=== PATIENT | female | born 1975 | race Caucasian/White ===

== ENCOUNTER 2021-02-25 09:50 | Emergency (ER) | payer MEDICARE ==
--- NOTE | 2021-02-25 11:25 | EDM.PDOC ---
ED HPI GENERAL MEDICAL PROBLEM - General Chief Complaint: Lower Extremity Injury/Pain Stated Complaint: FELL OUTSIDE Time Seen by Provider: 02/25/21 11:21 Source of Information: Reports: Patient, RN, RN Notes Reviewed History Limitations: Reports: No Limitations - History of Present Illness INITIAL COMMENTS - FREE TEXT/NARRATIVE: Rosa M is a 45 y/o female with history of chronic steroid use and osteogenesis imperfecta, who presents to the ED via personal vehicle with pain following a fall from ground level yesterday. The patient denies loss of consciousness and did not strike her head. She reports increasing pain in her anterolateral left ribs, lateral left knee, and lateral left ankle. The patient denies history of injuries to these areas of her body. She denies loss of sensory function to the extremities, but does note she is unable to ambulate due to pain. 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 She denies tobacco, alcohol, or recreational drug use. Left Ankle Pain Score (Numeric/FACES): 10 - Related Data Allergies Allergy/AdvReac Type Severity Reaction Status Date / Time lisinopril Allergy Other Verified 02/25/21 11:02 lorazepam Allergy Other Verified 02/25/21 11:02 morphine Allergy Hives Verified 02/25/21 11:02 Home Meds: Home Meds DULoxetine [Cymbalta] 60 mg PO DAILY 02/25/21 [History] HYDROcodone/Ibuprofen [Hydrocodone-Ibuprofen 7.5-200] 1 tab PO Q8HR 02/25/21 [History] Metoprolol Tartrate 25 mg PO QPM 02/25/21 [History] Metoprolol Tartrate 100 mg PO QAM 02/25/21 [History] predniSONE [Prednisone] 10 mg PO DAILY 02/25/21 [History] Past Medical History Cardiovascular History: Reports: Hypertension [employer] SPECIALIST History: Reports: Musculoskeletal History: Reports: Fracture Psychiatric History: Reports: Depression Immunologic History: Reports: Other (See Below) Other Immunologic History: autoimmune disorder-polymiocytis - Past Surgical History Musculoskeletal Surgical History: Reports: Other (See Below) Other Musculoskeletal Surgeries/Procedures:: left elbow surgery Social & Family History - Tobacco Use Tobacco Use Status *Q: Light Tobacco User Years of Tobacco use: 2 Packs/Tins Daily: 0.2 - Caffeine Use Caffeine Use: Reports: Coffee - Recreational Drug Use Recreational Drug Use: Yes Drug Use in Last 12 Months: No Recreational Drug Type: Reports: Marijuana/Hashish Review of Systems - Review of Systems Review Of Systems: Comprehensive ROS is negative, except as noted in HPI. ED EXAM, GENERAL - Physical Exam Exam: See Below Exam Limited By: No Limitations General Appearance: Alert, Mild Distress (Tearful d/t pain), Obese Eye Exam: Bilateral Eye: EOMI, Normal Inspection, PERRL (3mm) Ears: Normal External Exam, Normal Canal, Hearing Grossly Normal, Normal TMs Ear Exam: Bilateral Ear: Auricle Normal, Canal Normal, TM normal Nose: Normal Inspection, Normal Mucosa, No Blood Throat/Mouth: Normal Inspection, Normal Oropharynx, Normal Voice, No Airway Compromise Head: Atraumatic, Normocephalic Neck: Normal Inspection, Supple, Non-Tender, Full Range of Motion Respiratory/Chest: No Respiratory Distress, Lungs Clear, Normal Breath Sounds, No Accessory Muscle Use, Splinting. No: Chest Non-Tender (With deep breaths), Crackles, Rales, Rhonchi, Wheezing, Retractions, Prolonged Expiration Cardiovascular: Normal Peripheral Pulses, Regular Rate, Rhythm, No Edema, No Gallop, No JVD, No Murmur, No Rub Peripheral Pulses: 2+: Radial (L), Radial (R), Dorsalis Pedis (L), Dorsalis Pedis (R) GI/Abdominal: Normal Bowel Sounds, Soft, Non-Tender, No Distention, No Abnormal Bruit, No Mass, Pelvis Stable (Female) Exam: Deferred Rectal (Female) Exam: Deferred Back Exam: Normal Inspection, Full Range of Motion Extremities: No Pedal Edema, Normal Capillary Refill, Leg Pain (Left knee and left lateral ankle), Limited Range of Motion (To left knee and left ankle). No: Joint Swelling, Increased Warmth, Pallor, Redness Neurological: Alert, Oriented, CN II-XII Intact, Normal Cognition, No Motor/Sensory Deficits, Abnormal Gait (Unable to bear weight to left extremity without pain) Psychiatric: Normal Affect, Anxious, Tearful Skin Exam: Warm, Dry, Intact, Normal Color, No Rash. No: Ecchymosis, Mottled, Pallor, Petechiae Lymphatic: No Adenopathy Course - Vital Signs Last Recorded V/S: Last Vital Signs Temp 99.3 F 02/25/21 11:07 Pulse 87 02/25/21 11:07 Resp 20 02/25/21 11:07 BP 150/109 H 02/25/21 11:07 Pulse Ox 98 02/25/21 11:07 - Orders/Labs/Meds Meds: Medications Discontinued Medications Generic Name Dose Route Start Last Admin Trade Name Nestor PRN Reason Stop Dose Admin Diphtheria/Tetanus/Acell Pertussis 0.5 ml 02/25/21 12:57 02/25/21 13:44 Diphtheria,Pertussis(Acell),Tetanus Vaccine 0.5 Ml Syringe IM 02/25/21 12:58 0.5 ml .ONCE ONE Administration Ketorolac Tromethamine 30 mg 02/25/21 12:03 02/25/21 13:45 Ketorolac 30 Mg/Ml Sdv IM 02/25/21 12:04 30 mg ONETIME ONE Administration Pantoprazole Sodium 40 mg 02/25/21 12:03 02/25/21 13:42 Pantoprazole 40 Mg Tab.Cr PO 02/25/21 12:04 40 mg ONETIME ONE Administration - Re-Assessments/Exams Free Text/Narrative Re-Assessment/Exam: 02/25/21 Patient states she was bit by a vaccinated, known dog three days ago and is requesting TDaP. Will administer Boostrix. Ketorolac and Protonix administered. Xray of left ribs, knee, and ankle obtained. Findings of examination and imaging reviewed with patient. Will treat acute pain with Ultram. Discussed supportive cares for pain and avoidance of joint stiffness with patient. Patient instructed to follow up with primary care provider regarding today's visit. Red flag signs and symptoms which would warrant reevaluation reviewed. Patient verbalized understanding and agreement with the plan of care. Departure - Departure Time of Disposition: 13:16 Disposition: Home, Self-Care 01 Condition: Good Clinical Impression: Fall from ground level, Rib pain on left side, History of osteogenesis imperfecta, Chronic steroid use, Chronic narcotic use, Left lateral knee pain Left ankle sprain Qualifiers: Encounter type: initial encounter Involved ligament of ankle: other ligament Qualified Code(s): S93.492A - Sprain of other ligament of left ankle, initial encounter - Discharge Information *PRESCRIPTION DRUG MONITORING PROGRAM REVIEWED*: Not Applicable *COPY OF PRESCRIPTION DRUG MONITORING REPORT IN PATIENT DARREN: Not Applicable Forms: ED Department Discharge Additional Instructions: Rx: Ultram 1.) Continue with previously prescribed medications for pain management. 2.) Alternate ice and heat to the affected areas; 20 minutes at a time, every hour. 3.) Apply a compression sleeve to the left ankle for comfort. 4.) Continue to mobility joints to avoid stiffness. Sepsis Event Note (ED) - Evaluation Sepsis Screening Result: No Definite Risk
[2021-02-25] MEDS ORDERED: Ketorolac 30 MG/ML SDV IM ONE (12:03)
[2021-02-25] MEDS ORDERED: Pantoprazole 40 MG Tab.CR PO ONE (12:03)
--- NOTE | 2021-02-25 12:30 | CR ---
EXAMINATION: Ribs 2V w Chest Lt SEX: Female AGE: 45 years CLINICAL HISTORY: 45-year-old obese female injured left side (fall). Increasing pain. (AP chest and left oblique left rib detail films. Tiny radiopaque BB. Generally poor inspiratory effort.) Interpretation: 1. Dorsolumbar scoliosis. No vertebral body fracture. 2. Medullary sclerosis diametaphysis left humerus suggesting infarct or chondroid lesion. 3. No acute left rib fracture, underlying lung contusion, atelectasis, pleural effusion or elevation of the hemidiaphragm. 4. Normal cardiac silhouette (size and configuration). No pulmonary vascular congestion, cephalization of flow, alveolar edema or dependent pleural effusion. 5. No pneumothorax or pneumomediastinum.
--- NOTE | 2021-02-25 12:34 | CR ---
EXAMINATION: Ankle Min 3V Lt SEX: Female AGE: 45 years CLINICAL HISTORY: 45-year-old female injured in fall Interpretation: 3 views left ankle reveal transverse sclerosis distal diametaphysis, left tibia with overlying periostitis suggesting older, healing trauma i.e. old, nondisplaced impaction fracture. Mild asymmetric soft tissue swelling anterolaterally. No sign of other fracture left ankle or disruption of the tibiotalar mortise joint symmetry. Small heel spur at the insertion plantar aponeurosis and Achilles tendon of the os calcis. Reactive arthritic sclerosis talonavicular joint. No foreign bodies. CONCLUSION: Sprain. (Evidence of old fracture distal left tibia) Tiny heel spurs.
--- NOTE | 2021-02-25 12:36 | CR ---
EXAMINATION: Knee 3V Lt SEX: Female AGE: 45 years CLINICAL HISTORY: 45-year-old female injured left lower extremity (fall on left side). Pain. Interpretation: 3 views left knee unremarkable. Mild arthritis. Homogeneous normal bone mineral density. *No sign of left knee joint effusion, fracture, dislocation or radiopaque loose joint body. No foreign bodies. No pathologic skeletal lesions. Subtle (minimal) early arthritic degenerative changes.
[2021-02-25] MEDS ORDERED: Diphtheria,Pertussis(Acell),Tetanus Vaccine 0.5 ML Syringe IM ONE (12:57)
== END 2021-02-25 13:59 | disposition home or self-care (01) ==
LOC: DL.ED 09:50
DX: S93.402A Sprain of unspecified ligament of left ankle, initial encounter (principal); M25.562 Pain in left knee; R07.81 Pleurodynia; F14.90 Cocaine use, unspecified, uncomplicated; F19.90 Other psychoactive substance use, unspecified, uncomplicated; Z87.898 Personal history of other specified conditions; I10 Essential (primary) hypertension; Z72.0 Tobacco use; Z88.8 Allergy status to other drugs, medicaments and biological substances; Z88.5 Allergy status to narcotic agent; Z79.899 Other long term (current) drug therapy; W01.0XXA Fall on same level from slipping, tripping and stumbling without subsequent striking against object, initial encounter
CPT/HCPCS: 71101; 73562; 73610; 90471; 90715; 96372; 99283; A9270; J1885